=== PATIENT | female | born 1975 | race Hispanic/Latino ===

== ENCOUNTER 2025-01-23 12:38 | Emergency (ER) | payer OTHER ==
[~2025-01-23] VITALS: Ht 157.5 cm; Wt 68.0 kg
--- NOTE | 2025-01-23 12:50 | ERN ---
General Chief Complaint: Chest Pain Stated Complaint: CP Time Seen by MD: 12:44 Source: patient History of Present Illness Initial Comments Ms. guerra is a 50-year-old female who presented to the emergency department by private vehicle with complaints of chest tightness. She describes the chest tightness coming from the middle of the chest since the past 1 and half hour, she also states that her chest feels heavy. She states that [place], she immediately went to urgent care where they reviewed her EKG told her to get to an emergency department. She also complains of leg numbness that started 5 hours ago while eating breakfast around 9:30 a.m., she states that it started as a tingling sensation in her feet. She has a past medical history of prediabetes for which she is on metformin since the last 1 year. she also takes rosuvastatin and ezetimibe for hyperlipidemia and hypertriglyceridemia. Her immediate family history is unknown, she states that she was adopted within the family but she did state that her family has a history of heart problems but she is unable to provide details on that. Timing/Duration: 1-3 hours Severity/Quality: pressure, tightness Location: substernal Radiation: no radiation Prior Chest Pain/Cardiac Geraldine: no prior chest pain, no prior cardiac workup Past Medical History Past Medical History: High Cholesterol Past Surgical History: Cholecystectomy, Other Surgical History Other: double masectomy ROS Dictation ROS Dictation CONSTITUTIONAL: No chills, no fever, no weakness, no diaphoresis, no malaise. HEAD/FACE: No signs of trauma. EENT: No eye pain, no blurred vision, no tearing, no double vision, no ear pain, no ear discharge, no nose pain, no nasal congestion, no throat pain, no throat swelling, no mouth pain. RESPIRATORY: No cough, no orthopnea, no SOB, no stridor, no wheezing. CARDIOVASCULAR: Chest tightness, No chest pain, no edema, no palpitations, no syncope. GASTROINTESTINAL/ABDOMINAL: No abdominal pain, no constipation, no diarrhea, no nausea, no vomiting. GENITOURINARY: No abnormal discharge, no dysuria, no frequent urination, no hematuria. No complaints of pain in the genitals. MUSCULOSKELETAL: Bilateral Leg numbness, tingling sensation in both the legs, No back pain, no gout, no joint pain, no joint swelling, no muscle pain, no muscle stiffness, no neck pain,. INTEGUMENTARY: No change in color, no change in hair/nails, no dryness, no lesion, no lumps, no rash. NEUROLOGICAL/PSYCH: No anxiety, not depressed, no emotional problem, no headache, no numbness, no pre-existing deficit, no history of seizures, no tremors, no weakness. HEMATOLOGIC/LYMPHATIC: Not anemic, no history of blood clots, no apparent bleeding, no bruising, glands not swollen. All Systems Negative, Except as Noted. Physical Exam Physical Exam Dictation Physical Exam Dictation VITAL SIGNS: Reviewed. GENERAL APPEARANCE: Alert, oriented x3 HEAD AND FACE: Non-traumatic. EYES: PERRL, pink conjunctivas, eyelid no trauma, anterior chamber clear. EARS: Pinnas intact and no signs of trauma or erythema. Ear canals clear and no discharge. TMs no erythema. NOSE: No discharge, no bleeding. OROPHARYNX: Mouth normal, teeth no caries, tongue pink. Pharynx clear, no erythema. Tonsils no exudates, no abscesses noted. Mucous membrane moist. NECK: Supple, non-tender, no thyromegaly, no masses, no JVD, no bruits. BREAST: Deferred. CHEST: No tenderness, no crepitus, no paradoxical movement, no retractions. LUNGS: Clear, well-ventilated, symmetric, no rales, no wheezing, no rhonchi, no stridor, good breath sounds bilaterally. HEART: Regular rate, regular rhythm, no murmur, no gallops. VASCULAR: No peripheral edema. ABDOMEN: Soft, positive bowel sounds, nondistended, no guarding, nontender, no rebound, no masses no hepatomegaly, no splenomegaly, no Killian's sign, no hernias. RECTAL: Deferred. GENITAL: Deferred. NEUROLOGICAL: Normal speech, gross motor function intact, gross sensory function intact. MUSCULOSKELETAL: Neck nontender, full range of motion, back nontender, full range of motion. EXTREMITIES: Nontender, full range of motion. SKIN: Color pink, dry, no turgor, no rash, no lacerations, no abrasions, no contusions. LYMPHATICS: Deferred. Results Laboratory and Microbiology Lab and Micro Result Laboratory Tests Test 01/23/25 13:26 01/23/25 14:30 White Blood Count 11.8 K/uL (4.8-10.8) H Red Blood Count 3.86 MIL/uL (4.00-5.50) L Hemoglobin 12.3 g/dL (12.0-16.0) Hematocrit 36.0 % (36-48) Mean Corpuscular Volume 93.3 fL (79-99) Mean Corpuscular Hemoglobin 31.9 pg (27.0-33.0) Mean Corpuscular Hemoglobin Concent 34.2 g/dL (32.0-36.0) Red Cell Distribution Width 13.2 % (11.0-15.5) Platelet Count 392 K/uL (130-400) Mean Platelet Volume 8.9 fL (7.5-10.5) Immature Granulocyte % (Auto) 0.3 % (0-1) Neutrophils (%) (Auto) 79.8 % (40.0-77.0) H Lymphocytes (%) (Auto) 13.8 % (21.0-51.0) L Monocytes (%) (Auto) 5.5 % (3.0-13.0) Eosinophils (%) (Auto) 0.3 % (0.0-8.0) Basophils (%) (Auto) 0.3 % (0.0-5.0) Neutrophils # (Auto) 9.4 K/uL (1.8-7.7) H Lymphocytes # (Auto) 1.6 K/uL (1.0-4.8) Monocytes # (Auto) 0.7 K/uL (0.1-1.0) Eosinophils # (Auto) 0.03 K/uL (0.00-0.70) Basophils # (Auto) 0.04 K/uL (0.00-0.20) Absolute Immature Granulocyte (auto 0.04 K/uL (0-1) Nucleated Red Blood Cells 0.0 % (0.0-0.19) Sodium Level 143 mmol/L (136-145) Potassium Level 3.8 mmol/L (3.5-5.1) Chloride Level 107 mmol/L (101-111) Carbon Dioxide Level 26 mmol/L (21-32) Blood Urea Nitrogen 14 mg/dL (7-18) Creatinine 0.8 mg/dL (0.5-1.0) Glomerular Filtration Rate Calc 89 mL/min (>90) Random Glucose 103 mg/dL (70-105) Total Calcium 9.1 mg/dL (8.5-10.1) Total Creatine Kinase 161 U/L (21-232) Troponin I High Sensitivity 5 ng/L (4-50) 5 ng/L (4-50) C-Reactive Protein, Quantitative 3.50 mg/L (0.5-3.0) H Orders, Meds, Vital Signs Orders Procedure Category Date Status Time Chest 2vws RAD 01/23/25 Resulted 12:48 Troponin I High LAB 01/23/25 Complete Sensitivity 12:48 12 Lead Ekg Tracing- EKG 01/23/25 Complete Technical 12:54 Cbc With Differential LAB 01/23/25 Complete 12:55 Creatine Kinase, Total LAB 01/23/25 Complete 12:55 Troponin I High LAB 01/23/25 Complete Sensitivity 12:55 Basic Metabolic Panel LAB 01/23/25 Complete 12:55 Aspirin 325mg Tab PHA 01/23/25 Complete (Aspirin 325mg Tab) 13:30 Nitroglycerin 0.4mg PHA 01/23/25 Complete Sl Tab (Nitrostat) 13:17 Creatine Kinase, Total LAB 01/23/25 Complete 15:22 Crp Quantitative LAB 01/23/25 Complete 15:22 Current Medications Medications (Trade) Dose Ordered Sig/Ramiro Route PRN Reason Start Time Stop Time Status Last Admin Dose Admin Aspirin (Aspirin 325mg Tab) 325 mg ONCE ONCE PO 01/23/25 13:30 01/23/25 13:31 DC 01/23/25 13:39 Nitroglycerin (Nitrostat) 0.4 mg AD STAT SL 01/23/25 13:17 01/23/25 13:22 DC 01/23/25 13:38 Vital Signs Date Time Temp Pulse Resp B/P (MAP) Pulse Ox O2 Delivery O2 Flow Rate FiO2 01/23/25 16:28 98.2 78 16 128/72 97 Room Air* 0 01/23/25 13:44 97.9 84 16 134/79 97 Room Air* 0 01/23/25 12:45 98.2 20 20 144/90 95 Room Air* 0 01/23/25 12:41 98.2 16 20 144/90 95 Room Air MDM Chief complaint: Ms. Guerra presented to the ED with complaints of chest tightness and numbness and tingling in bilateral legs. Should his blood pressure and substernal in location and constant. Past medical history: The patient has a past medical history of prediabetes for which she takes metformin, rheumatoid arthritis, hyperlipidemia and hypertriglyceridemia for which she takes rosuvastatin and ezetimibe. Vitals: On admission her vitals were unremarkable except for elevated blood pressure at 144/94 mmHg Physical examination: Physical examination was unremarkable Review of systems: Patient endorsed chest pressure, numbness and tingling in bilateral legs below the knees. Review of systems is otherwise unremarkable. Laboratory results: Serum chemistry was unremarkable except slightly elevated CRP at 3.5. CVP was unremarkable except slightly elevated neutrophils at 79.8% with a leukocyte count of 11.8. The troponin was normal. Repeat troponin 1 hour later did not show any elevation. EKG did not reveal any significant abnormalities. Imaging results: Chest x-ray revealed no significant abnormalities. Differential: Anxiety induced chest tightness, acute coronary syndrome, and peripheral neuropathy. Assessment and plan: Based on the symptoms, to rule out acute coronary syndrome very troponins and EKG which revealed no abnormalities. To rule out any mechanical causes of chest pressure we performed a chest x-ray which revealed no abnormalities. To assess for any ongoing rheumatoid arthritis flare-ups we performed CRP and creatinine kinase which are not abnormal. Based on all the above findings we decided to discharge the patient and advised to follow-up with her PCP or return to the ED if the symptoms persist/increase in frequency/inc rease in severity. ED Course Orders Procedure Category Date Status Time Chest 2vws RAD 01/23/25 Resulted 12:48 Troponin I High LAB 01/23/25 Complete Sensitivity 12:48 12 Lead Ekg Tracing- EKG 01/23/25 Complete Technical 12:54 Cbc With Differential LAB 01/23/25 Complete 12:55 Creatine Kinase, Total LAB 01/23/25 Complete 12:55 Troponin I High LAB 01/23/25 Complete Sensitivity 12:55 Basic Metabolic Panel LAB 01/23/25 Complete 12:55 Aspirin 325mg Tab PHA 01/23/25 Complete (Aspirin 325mg Tab) 13:30 Nitroglycerin 0.4mg PHA 01/23/25 Complete Sl Tab (Nitrostat) 13:17 Creatine Kinase, Total LAB 01/23/25 Complete 15:22 Crp Quantitative LAB 01/23/25 Complete 15:22 Current Medications Medications (Trade) Dose Ordered Sig/Ramiro Route PRN Reason Start Time Stop Time Status Last Admin Dose Admin Aspirin (Aspirin 325mg Tab) 325 mg ONCE ONCE PO 01/23/25 13:30 01/23/25 13:31 DC 01/23/25 13:39 Nitroglycerin (Nitrostat) 0.4 mg AD STAT SL 01/23/25 13:17 01/23/25 13:22 DC 01/23/25 13:38 Vital Signs Date Time Temp Pulse Resp B/P (MAP) Pulse Ox O2 Delivery O2 Flow Rate FiO2 01/23/25 16:28 98.2 78 16 128/72 97 Room Air* 0 21 01/23/25 13:44 97.9 84 16 134/79 97 Room Air* 0 01/23/25 12:45 98.2 20 20 144/90 95 Room Air* 0 01/23/25 12:41 98.2 16 20 144/90 95 Room Air HEART Score Response (Comments) Value History: Moderate suspicion (+1) 1 EKG: Normal 0 Age: 45-65yrs (+1) 1 Risk Factors: 1-2 risk factors (+1) 1 Initial Troponin: Normal limit (0) 0 HEART Score Risk: Low Risk for MACE (1-3) Total 3 CHADS-VASc Score Response (Comments) Value Sex: Female (+1) 1 CHF History: No (0) 0 Hypertension Hx: No (0) 0 Stroke/TIA/Thromboembolism Hx: No (0) 0 Vascular Disease Hx(prior [place], CAD, PAD, etc.): No (0) 0 Diabetes Hx: Yes (+1) 1 Thromboembolism Risk: Low Risk (0-1) Antithrombotic Therapy Recommendations: No Therapy Needed (0-1) Total 2 DX & DISP Departure Impression: Primary Impression: Chest tightness Additional Impression: Numbness and tingling of both legs Condition: Stable Disposition: Discharge Additional Instructions: You were admitted to the ED with complaints of chest pressure and numbness and tingling in her both legs. We did an EKG and cardiac troponins the trachea heart function we have reviewed those results and mood is not find any significant abnormalities that could warrant an admission at this time. We also did a chest x-ray to find the physiologic reason for chest tightness. The chest x-ray came back negative for any significant abnormalities. We did laboratory work to check for any electrolyte abnormalities or inflammatory conditions that might be leading to her current symptoms. The laboratory results did not reveal any significant abnormalities. We advised her to follow up with the PCP if the symptoms persist or increase in frequency or increase in intensity. I performed a substantive portion of the visit. I have reviewed and personally made and approve the management plan that is documented in the notes by myself with CINDY/resident. I acknowledged full responsibility for the patient's management plan. 50-year-old female with leg weakness and discomfort, also had some possible chest discomfort. Her heart score is three, two normal troponins. Did offer the patient admission but she prefers discharge. It is far as the legs go, no signs of myositis, significant neurologic disease, or any other life-threatening or major pathologies. DELROY TAYLOR MD Jan 23, 2025 12:50 ANMOL KHALIL DO Jan 23, 2025 18:02
--- NOTE | 2025-01-23 13:28 | EKG ---
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
[2025-01-23 13:36] LABS: IMMATURE GRANULOCYTE ABSOLUTE 0.04 K/uL (0-1); NUCLEATED RED BLOOD CELLS 0.0 % (0.0-0.19); PLATELET COUNT (AUTO) 392 K/uL (130-400); RED BLOOD CELL COUNT(AUTO) 3.86 MIL/uL (4.00-5.50); RED CELL DISTRIBUTION WIDTH 13.2 % (11.0-15.5); WHITE BLOOD COUNT (AUTO) 11.8 K/uL (4.8-10.8)
[2025-01-23] MEDS: NITROGLYCERIN 0.4 MG SL TAB SL STA (13:38)
[2025-01-23] MEDS: ASPIRIN 325MG TAB PO ONE (13:39)
[2025-01-23 13:45] LABS: CREATININE 0.8 mg/dL (0.5-1.0); GLOMERULAR FILTR. RATE CALC 89.0 mL/min (>90); GLUCOSE,RANDOM 103.0 mg/dL (70-105); SODIUM SERUM 143.0 mmol/L (136-145); UREA NITROGEN, BLOOD 14.0 mg/dL (7-18)
[2025-01-23 13:50] LABS: CREATINE KINASE, TOTAL 153.0 U/L (21-232)
--- NOTE | 2025-01-23 13:56 | HMCIMG ---
EXAM: CR Chest, 2 View. CLINICAL HISTORY: chest pain COMPARISON: None provided. FINDINGS: Multiple clips within the breast soft tissues. LUNGS: The lungs show no infiltrate or other acute finding. PLEURAL SPACES: No pleural effusion or pneumothorax. MEDIASTINUM: Cardiac size and mediastinal contours within normal limits. BONES: No acute osseous abnormality. IMPRESSION: No acute cardiopulmonary pathology is evident. /Hanna
[2025-01-23 15:51] LABS: CREATINE KINASE, TOTAL 161.0 U/L (21-232)
[2025-01-23 16:28] VITALS: BP 128/72; PULSE 78; RESP 16; TEMP 98.2; O2SAT 97
== END 2025-01-23 16:30 | disposition home or self-care (01) ==
LOC: EDH 12:38
DX: R07.89 Other chest pain (principal); R20.0 Anesthesia of skin; E11.9 Type 2 diabetes mellitus without complications; E78.00 Pure hypercholesterolemia, unspecified; Z90.49 Acquired absence of other specified parts of digestive tract
CPT/HCPCS: 36415; 71046; 80048; 82550; 84484; 85025; 86140; 93005; 99285